=== PATIENT | female | born 1945 | race Caucasian/White ===

== ENCOUNTER 2019-12-24 10:54 | Emergency (ER) | payer MEDICARE, SELFPAY ==
[2019-12-24 11:04] VITALS: BP 139/43; PULSE 82; RESP 14; TEMP 36.9; O2SAT 99
--- NOTE | 2019-12-24 11:28 | ED.GENADULT ---
HPI - General Adult General Chief complaint: Urogenital-Female Stated complaint: burning/pressure with urination/sinus congestion Time Seen by Provider: 12/24/19 11:28 Source: patient and RN notes reviewed Mode of arrival: ambulatory Limitations: no limitations History of Present Illness HPI narrative: 74-year-old female presents with urinary complaints for the past 3-4 days. Dysuria consist of lower back pain, foul smelling urine, burning, frequency, and urgency.? Cranberry capsules without relief. Denies fever or chills. No significant pelvic pain. No vaginal discharge.? No concerns for STDs. Denies being sexual active. Exacerbating factors urinating.? Denies hematuria or vaginal bleeding. No flank pain. Denies nausea, vomiting, and abdominal pain.? Tolerating liquids well.? Remains active. female presents with complaints of upper respiratory infection, sneezing, some facial congestion, facial pressure, and post nasal drainage for the past 14 days. Throat lozenges, saline nasal spray, and NyQuil without relief. No facial swelling. Denies cough and chest congestion. Nasal congestion and rhinorrhea. No high fevers, drooling, neck or throat swelling. No voice change. No nausea, vomiting, or abdominal pain. Tolerating liquids well. Denies difficulty swallowing, jaw pain, dental pain, foreign body sensation, and rash. No chest pain or shortness of breath. Remains active. The patient reports she have not been diagnosed with COVID-19. The patient reports she is not waiting for the results of a COVID-19 lab test. The patient reports she do not have chills, weakness, or fatigue. The patient reports she do not have a new or worsening cough or shortness of breath. The patient reports she do not have any sore throat, loss of taste, and diarrhea. Denies recent traveling. Denies concerns for COVID-19 or exposures been home with limited outdoor exposure except for essential household needs and return home. At this time, patient is not suspected of having COVID-19. Some parts of this dictation were generated by voice recognition software and may contain typographical and/or grammatical inaccuracies. Related Data Home Medications Medication Instructions Recorded Confirmed folic acid 1 mg PO DAILY 12/24/19 12/24/19 infliximab [Remicade] 60 mg IV [id number] 12/24/19 12/24/19 losartan 50 mg PO DAILY 12/24/19 12/24/19 meloxicam 15 mg PO DAILY 12/24/19 12/24/19 methotrexate (PF) 10 mg SUBCUT WEEKLY 12/24/19 12/24/19 multivitamin with folic acid [High 1 tablet PO DAILY 12/24/19 12/24/19 Potency Multivitamin] oxybutynin chloride 5 mg PO DAILY 12/24/19 12/24/19 rosuvastatin 40 mg PO DAILY 12/24/19 12/24/19 Allergies Allergy/AdvReac Type Severity Reaction Status Date / Time No Known Allergies Allergy Verified 12/24/19 11:16 Review of Systems Review of Systems: Narrative: CONSTITUTIONAL: Denies fever, chills, sweats. EYES: Denies visual changes, redness, discharge. ENT: Denies sore throat, otalgia. Complains of rhinorrhea, congestion, sneezing, some facial congestion, facial pressure, and PND CARDIOVASCULAR: Denies chest pain, palpitations, edema. RESPIRATORY: Denies dyspnea, wheezing, cough. GASTROINTESTINAL: Denies abdominal pain, nausea, vomiting, diarrhea. GENITOURINARY: Complains of dysuria (burning, frequency, and urgency). Denies hematuria, abnormal discharge. SKIN: Denies rash or itching. MUSCULOSKELETAL: Complains of acute back pain. Denies joint pain or myalgia. NEUROLOGIC: Denies numbness or focal weakness. PSYCHIATRIC: Denies anxiety or depression. All systems reviewed & are unremarkable except as noted in HPI and below. [facility] Past Medical History Medical History (Updated 12/25/19 @ 00:00 by Darnell Pathak) History of sinus problem Hypertension Mild hypercholesterolemia Overactive bladder Psoriasis Surgical History Surgical History (Updated 12/24/19 @ 11:53 by CATHERINE Sage) Hist
== END 2019-12-24 11:50 | disposition home or self-care (01) ==
PROVIDERS: Emergency Provider Nurse Practitioner Family; PCP Internal Medicine
DX: R30.0 Dysuria (principal); J01.90 Acute sinusitis, unspecified; Z87.891 Personal history of nicotine dependence; I10 Essential (primary) hypertension; E78.00 Pure hypercholesterolemia, unspecified; Z96.651 Presence of right artificial knee joint
CPT/HCPCS: 81003; 87077; 87086; 87088; 87186; 99213; G0463